=== PATIENT | female | born 1985 | race African-American/Black ===

== ENCOUNTER 2025-01-21 11:12 | Inpatient (IN) | payer MEDICAID ==
[~2025-01-21] VITALS: Ht 170.2 cm; Wt 77.1 kg
[2025-01-21] MEDS: LEVETIRACETAM 1000MG PREMIX 100 ML IV ONE ×2 (11:52)
[2025-01-21 12:02] LABS: CHLORIDE 107 mEq/L (98-107); POTASSIUM 4.4 mEq/L (3.5-5.1); SODIUM 137 mEq/L (136-145)
[2025-01-21 12:03] LABS: CARBON DIOXIDE 19 mEq/L (21-32)
[2025-01-21 12:04] LABS: CALCIUM 8.7 mg/dL (8.7-10.4)
[2025-01-21 12:08] LABS: CREATININE 0.6 mg/dL (0.6-1.0); GLUCOSE 100 mg/dL (70-105)
[2025-01-21 12:09] LABS: UREA NITROGEN BLOOD 10 mg/dL (9-23)
[2025-01-21 12:21] LABS: BASOPHILS % 0.4 % (0.0-2.0); EOSINOPHILS % 1.3 % (0.0-5.0); HEMATOCRIT. 22.5 % (36.0-48.0); MEAN CORPUSCULAR HEMOGLOBIN 16.6 pg (28.0-32.0); MEAN CORPUSCULAR VOLUME 61.4 fL (81.0-99.0); MEAN PLATELET VOLUME 9.6 fl (7.4-10.4); MONOCYTES % 8.2 % (2.0-8.0); NEUTROPHILS % 46.1 % (40.0-76.0); PLATELET 212 x1000/uL (130-400); RED BLOOD CELL COUNT 3.66 mill/uL (4.2-5.4); RED CELL DISTRIBUTION WIDTH 22.6 % (11.6-14.6); WHITE BLOOD COUNT 2.9 x1000/uL (4.5-11.0)
[2025-01-21 12:37] LABS: ADD RBC MORPHOLOGY YES; DIFFERENTIAL COMMENT 1; HEMOGLOBIN. 6.1 g/dL (12.0-16.0)
[2025-01-21 13:05] LABS: CLARITY URINE CLEAR (CLEAR); COLOR URINE YELLOW (YELLOW); GLUCOSE URINE NEGATIVE (NEGATIVE); KETONES URINE NEGATIVE (NEGATIVE); LEUKOCYTE ESTERASE URINE NEGATIVE (NEGATIVE); NITRITE URINE NEGATIVE (NEGATIVE); OCCULT BLOOD URINE NEGATIVE (NEGATIVE); PH URINE 6.5 (4.5-8.0); PROTEIN URINE NEGATIVE (NEGATIVE); SPECIFIC GRAVITY URINE 1.014 (1.005-1.030); UROBILINOGEN URINE 0.2 E.U./dL (0.2-1.0)
[2025-01-21 13:09] LABS: ETHANOL BLOOD < 10 mg/dL (<10); TROPONIN I HIGH SENSITIVITY < 4 ng/L (3.0-34)
[2025-01-21 13:53] LABS: ANISOCYTOSIS 3+; HYPOCHROMASIA 2+; MICROCYTOSIS 2+; PLATELET ESTIMATE NORMAL
[2025-01-21] MEDS ORDERED: IPRATROPIUM/ALBUTEROL 0.5-3(2.5)MG/3ML NEB HHN PRN (14:30)
[2025-01-21] MEDS ORDERED: ONDANSETRON HCL 4MG/2ML INJ IV PRN (14:30)
[2025-01-21] MEDS ORDERED: GUAIFENESIN 200MG/10ML SUGAR FREE UDC PO PRN (14:30)
[2025-01-21] MEDS ORDERED: DOCUSATE SODIUM 100MG CAPSULE PO PRN (14:30)
[2025-01-21] MEDS ORDERED: ACETAMINOPHEN 325MG TABLET PO PRN ×2 (14:30)
[2025-01-21] MEDS ORDERED: LORAZEPAM 2MG/ML INJ IV PRN (14:30)
[2025-01-21] MEDS ORDERED: CLONIDINE 0.1MG TABLET PO PRN (14:30)
[2025-01-21] MEDS: LACTATED RINGERS 1,000 ML IV SCH (15:16)
[2025-01-21 16:43] LABS: IRON 21 ug/dL (50-170)
[2025-01-21 16:46] LABS: TOTAL IRON BINDING CAPACITY 358 ug/dl (250-425)
[2025-01-21 16:46] LABS: HEMATOCRIT 22.5 % (36.0-48.0)
[2025-01-21 16:49] LABS: HEMOGLOBIN 6.2 g/dL (12.0-16.0)
[2025-01-21 16:55] LABS: FOLIC ACID (FOLATE) SERUM 7.34 ng/mL (>5.38); VITAMIN B12 SERUM 516 pg/mL (211-911)
[2025-01-21 16:58] LABS: FERRITIN 3 ng/mL (10-291)
[2025-01-21 20:00] VITALS: BP 96/77; PULSE 91; TEMP 37.2; O2SAT 100
[2025-01-21] MEDS ORDERED: LEVETIRACETAM 500MG in NACL 100ML PREMIX IV SCH (21:00)
[2025-01-21] MEDS: LEVETIRACETAM 500MG PREMIX 100ML IV SCH (22:57)
[2025-01-22] VITALS (12 sets, daily range): BP systolic 89–106; BP diastolic 51–66; PULSE 70–88; RESP 14–19; TEMP 36.6696–37.1; O2SAT 99–100
[2025-01-22 00:50] LABS: HEMATOCRIT 22.7 % (36.0-48.0)
[2025-01-22 01:01] LABS: HEMOGLOBIN 6.6 g/dL (12.0-16.0)
[2025-01-22 01:14] LABS: CREATINE KINASE 31 IU/L (34-145)
[2025-01-22 01:18] LABS: HEPATITIS B SURFACE ANTIGEN NEGATIVE (Negative); TROPONIN I HIGH SENSITIVITY < 4 ng/L (3.0-34)
[2025-01-22 01:39] LABS: HEPATITIS C AB NON REACTIVE (Neg) (Negative)
[2025-01-22] MEDS: FERROUS SULFATE 300MG/5ML UDC PO SCH (06:52)
[2025-01-22] MEDS: PANTOPRAZOLE 40MG DR TABLET PO SCH (06:52)
[2025-01-22 09:10] LABS: HEMATOCRIT 26.7 % (36.0-48.0); HEMOGLOBIN 7.8 g/dL (12.0-16.0); MEAN CORPUSCULAR HEMOGLOBIN 18.8 pg (28.0-32.0); MEAN CORPUSCULAR HGB CONC 29.4 g/dL (31.0-37.0); PLATELET 161 x1000/uL (130-400); RED BLOOD CELL COUNT 4.17 mill/uL (4.2-5.4); RED CELL DISTRIBUTION WIDTH 26.2 % (11.6-14.6); WHITE BLOOD COUNT 3.4 x1000/uL (4.5-11.0)
[2025-01-22 09:12] LABS: CHLORIDE 108 mEq/L (98-107); POTASSIUM 3.9 mEq/L (3.5-5.1); SODIUM 139 mEq/L (136-145)
[2025-01-22 09:13] LABS: CALCIUM 8.7 mg/dL (8.7-10.4); CARBON DIOXIDE 23 mEq/L (21-32)
[2025-01-22 09:18] LABS: CREATININE 0.6 mg/dL (0.6-1.0); GLUCOSE 80 mg/dL (70-105); UREA NITROGEN BLOOD 10 mg/dL (9-23)
[2025-01-22 09:20] LABS: TROPONIN I HIGH SENSITIVITY < 4 ng/L (3.0-34)
[2025-01-22 09:25] LABS: CREATINE KINASE 29 IU/L (34-145)
[2025-01-22] MEDS: FLUOXETINE HCL 10 MG CAPSULE PO SCH (13:10)
[2025-01-22 16:33] LABS: *AMPHETAMINES SCREEN URINE NEGATIVE (NEGATIVE); *BARBITURATES SCREEN URINE NEGATIVE (NEGATIVE); *BENZODIAZEPINES SCREEN URINE NEGATIVE (NEGATIVE); *COCAINE SCREEN URINE NEGATIVE (NEGATIVE); METHADONE URINE SCREEN NEGATIVE (NEGATIVE); OPIATES URINE SCREEN NEGATIVE (NEGATIVE)
[2025-01-22 16:34] LABS: CANNABINOID URINE SCREEN NEGATIVE (NEGATIVE); ECSTASY MDMA SCREEN URINE NEGATIVE (NEGATIVE); PHENCYCLIDINE URINE SCREEN NEGATIVE (NEGATIVE)
[2025-01-23] VITALS: BP_SYST 120; PULSE 84; RESP 20; TEMP 36.7; O2SAT 100
[2025-01-23 04:00] VITALS: BP 103/59; PULSE 86; RESP 20; TEMP 37; O2SAT 100
[2025-01-23 06:46] LABS: HEMOGLOBIN 8.4 g/dL (12.0-16.0)
[2025-01-23 07:09] LABS: CHLORIDE 107 mEq/L (98-107); POTASSIUM 3.9 mEq/L (3.5-5.1); SODIUM 139 mEq/L (136-145)
[2025-01-23 07:10] LABS: CALCIUM 8.9 mg/dL (8.7-10.4); CARBON DIOXIDE 22 mEq/L (21-32)
[2025-01-23 07:15] LABS: CREATININE 0.6 mg/dL (0.6-1.0); GLUCOSE 84 mg/dL (70-105); UREA NITROGEN BLOOD 10 mg/dL (9-23)
[2025-01-23 07:50] VITALS: BP 119/83; PULSE 82; RESP 19; TEMP 36.4; O2SAT 100
[2025-01-23 08:00] LABS: HCG SCREEN NEGATIVE
[2025-01-23] MEDS: LEVETIRACETAM 500MG TABLET PO SCH (09:05)
[2025-01-23 12:00] VITALS: BP 133/77; PULSE 69; RESP 19; TEMP 36.4; O2SAT 99
[2025-01-23 16:00] VITALS: PULSE 78; RESP 26; TEMP 36.4; O2SAT 100
[2025-01-23 20:04] VITALS: BP 112/72; PULSE 79; RESP 14; TEMP 36.4; O2SAT 99
[2025-01-24 00:04] VITALS: BP 106/55; PULSE 96; RESP 17; TEMP 36.3; O2SAT 100
[2025-01-24 04:04] VITALS: BP 110/58; PULSE 76; RESP 20; TEMP 36.4; O2SAT 96
[2025-01-24 08:00] VITALS: BP 110/62; PULSE 97; RESP 17; TEMP 36.9; O2SAT 100
[2025-01-24] MEDS ORDERED: FERR325T6 MT (08:30)
[2025-01-24] MEDS ORDERED: KEPP500 PO (08:30)
[2025-01-24] MEDS ORDERED: FLUO-335 PO (08:30)
[2025-01-24 11:04] VITALS: BP 110/62; PULSE 97; TEMP 98.5; O2SAT 100
== END 2025-01-24 12:02 | disposition home or self-care (01) | DRG 53 ==
LOC: ER 11:12 → EDBEDREQ 12:42 → 3WST 13:47 → EDBEDREQ 14:17 → 3WST 01-23 07:56
PROVIDERS: ADMIT Internal Medicine; ATTEND Internal Medicine
PROC: 30233N1 Transfusion of Nonautologous Red Blood Cells into Peripheral Vein, Percutaneous Approach (ICD-10-PCS; 2025-01-21)
PROC: GZ56ZZZ Individual Psychotherapy, Supportive (ICD-10-PCS; 2025-01-22)
PROC: 4A00X4Z Measurement of Central Nervous Electrical Activity, External Approach (ICD-10-PCS; principal; 2025-01-23)
DX: G40.89 Other seizures (principal); D25.9 Leiomyoma of uterus, unspecified; D50.9 Iron deficiency anemia, unspecified; F43.0 Acute stress reaction; F32.9 Major depressive disorder, single episode, unspecified; Z91.199 Patient's noncompliance with other medical treatment and regimen due to unspecified reason; Z56.0 Unemployment, unspecified
CPT/HCPCS: 36415; 76856; 80048; 80305; 80320; 81003; 82542; 82550; 82607; 82728; 82746; 83540; 83550; 84484; 84703; 85014; 85018; 85025; 85027; 86705; 86850; 86900; 86920; 87340; 93970; 95816; 99291; A4606; J1953; J7120; P9016; G0480

== ENCOUNTER 2025-03-13 17:33 | Emergency (ER) | payer SELFPAY ==
[~2025-03-13] VITALS: Ht 177.8 cm; Wt 80.0 kg
[~2025-03-13 17:33] MED LIST: FERR325T6 MT; FLUO-335 PO; KEPP500 PO
[2025-03-13 17:36] VITALS: TEMP 36.9; O2SAT 100
[2025-03-13 21:30] VITALS: BP 116/80; PULSE 101; RESP 18; O2SAT 100
== END 2025-03-13 21:30 | disposition home or self-care (01) ==
LOC: ER 17:37
DX: R56.9 Unspecified convulsions (principal); Z79.899 Other long term (current) drug therapy
CPT/HCPCS: 93005; 99283

== ENCOUNTER 2025-07-03 18:32 | Emergency (ER) | payer OTHER ==
[~2025-07-03] VITALS: Ht 165.1 cm; Wt 82.0 kg
[2025-07-03 18:37] VITALS: BP 103/42; PULSE 101; RESP 18; TEMP 36.8; O2SAT 99
[2025-07-03] MEDS ORDERED: LEVETIRACETAM 1000MG PREMIX 100 ML IV ONE (19:00)
[2025-07-03] MEDS ORDERED: SODIUM CHLORIDE 0.9% 1,000 ML IV ONE (19:15)
[2025-07-03 19:18] LABS: BASOPHILS % 0.3 % (0.0-2.0); EOSINOPHILS % 1.0 % (0.0-5.0); HEMATOCRIT. 26.6 % (36.0-48.0); HEMOGLOBIN. 7.6 g/dL (12.0-16.0); LYMPHOCYTES % 38.5 % (20.0-50.0); MEAN PLATELET VOLUME 9.3 fl (7.4-10.4); MONOCYTES % 7.1 % (2.0-8.0); NEUTROPHILS % 53.1 % (40.0-76.0); PLATELET 301 x1000/uL (130-400); RED BLOOD CELL COUNT 3.79 mill/uL (4.2-5.4); RED CELL DISTRIBUTION WIDTH 27.5 % (11.6-14.6)
[2025-07-03 19:20] LABS: ADD RBC MORPHOLOGY YES
[2025-07-03 19:33] LABS: CREATININE 0.8 mg/dL (0.6-1.0)
[2025-07-03 19:34] LABS: ETHANOL BLOOD < 10 mg/dL (<10); UREA NITROGEN BLOOD 13 mg/dL (9-23)
[2025-07-03 20:40] LABS: PLATELET ESTIMATE NORMAL
== END 2025-07-03 19:15 | disposition left against medical advice (07) ==
LOC: ER 18:32
DX: G40.909 Epilepsy, unspecified, not intractable, without status epilepticus (principal); Z79.899 Other long term (current) drug therapy
CPT/HCPCS: 80048; 80320; 85025; 36415; 93005; 99284; J1953; J7030; Z7610 ×2; A4606; G0480

== ENCOUNTER 2025-08-20 17:51 | Inpatient (IN) | payer MEDICAID ==
[~2025-08-20] VITALS: Ht 170.2 cm; Wt 78.5 kg
[~2025-08-20 17:51] MED LIST changes: +LEVE1000 MT
[2025-08-20 17:54] VITALS: O2SAT 99
[2025-08-20] MEDS ORDERED: KEPP500 MT (17:57)
[2025-08-20] MEDS: LORAZEPAM 2MG/ML UD SYRINGE IV NR (18:33)
[2025-08-20] MEDS: KETOROLAC 15MG/ML VIAL IV ONE (18:33)
[2025-08-20] MEDS: SODIUM CHLORIDE 0.9% 1,000 ML IV ONE (18:33)
[2025-08-20] MEDS: LEVETIRACETAM 1000MG PREMIX 100 ML IV ONE (18:33)
[2025-08-20 20:36] LABS: BASOPHILS % 0.4 % (0.0-2.0); EOSINOPHILS % 0.7 % (0.0-5.0); HEMATOCRIT. 26.5 % (36.0-48.0); HEMOGLOBIN. 7.8 g/dL (12.0-16.0); LYMPHOCYTES % 14.0 % (20.0-50.0); MEAN PLATELET VOLUME 9.8 fl (7.4-10.4); MONOCYTES % 7.5 % (2.0-8.0); NEUTROPHILS % 77.4 % (40.0-76.0); PLATELET 240 x1000/uL (130-400); RED BLOOD CELL COUNT 3.74 mill/uL (4.2-5.4); RED CELL DISTRIBUTION WIDTH 24.4 % (11.6-14.6)
[2025-08-20 20:38] LABS: ADD RBC MORPHOLOGY YES
[2025-08-20 20:48] LABS: CREATININE 1.1 mg/dL (0.6-1.0)
[2025-08-20 20:49] LABS: UREA NITROGEN BLOOD 14 mg/dL (9-23)
[2025-08-20 20:50] LABS: ASPARTATE AMINOTRANSFERASE 14 IU/L (<34); BILIRUBIN DIRECT < 0.1 mg/dL (<=3.0)
[2025-08-20 20:51] LABS: BILIRUBIN TOTAL 0.4 mg/dL (0.1-1.0); PROTEIN TOTAL 6.0 g/dL (6.0-8.3)
[2025-08-20 20:52] LABS: PLATELET ESTIMATE NORMAL
[2025-08-20] MEDS ORDERED: CLONIDINE 0.1MG TABLET PO PRN (22:45)
[2025-08-20] MEDS ORDERED: MAGNESIUM/ALUMINUM HYDROXIDE/SIMETHICONE 30ML UDC PO PRN (22:45)
[2025-08-20] MEDS ORDERED: HYDROCODONE/ACETAMINOPHEN 5/325MG TABLET PO PRN (22:45)
[2025-08-20] MEDS ORDERED: LORAZEPAM 2MG/ML UD SYRINGE IV PRN (22:45)
[2025-08-20] MEDS ORDERED: ZOLPIDEM TARTRATE 5MG TABLET PO PRN (22:45)
[2025-08-20] MEDS ORDERED: ACETAMINOPHEN 325MG TABLET PO PRN (22:45)
[2025-08-20] MEDS ORDERED: ONDANSETRON HCL 4MG/2ML INJ IV PRN (22:45)
[2025-08-21] VITALS: BP 114/73; PULSE 84; PULSE 90; RESP 18; RESP 19; TEMP 36.1956; TEMP 36.2; O2SAT 100
[2025-08-21] MEDS: LEVETIRACETAM 500MG TABLET PO SCH ×2 (01:36→21:26)
[2025-08-21] MEDS: SODIUM CHLORIDE 0.9% 1,000 ML IV SCH (01:41)
[2025-08-21 04:00] VITALS: BP 91/57; PULSE 77; RESP 19; TEMP 36.2; O2SAT 99
[2025-08-21 07:51] LABS: BASOPHILS % 0.3 % (0.0-2.0); EOSINOPHILS % 2.3 % (0.0-5.0); HEMATOCRIT. 25.2 % (36.0-48.0); HEMOGLOBIN. 7.6 g/dL (12.0-16.0); LYMPHOCYTES % 35.6 % (20.0-50.0); MEAN PLATELET VOLUME 10.6 fl (7.4-10.4); MONOCYTES % 9.0 % (2.0-8.0); NEUTROPHILS % 52.8 % (40.0-76.0); PLATELET 239 x1000/uL (130-400); RED BLOOD CELL COUNT 3.63 mill/uL (4.2-5.4); RED CELL DISTRIBUTION WIDTH 24.2 % (11.6-14.6)
[2025-08-21 08:00] VITALS: BP 103/52; PULSE 81; RESP 16; TEMP 36.3; O2SAT 98
[2025-08-21 08:05] LABS: CREATININE 0.7 mg/dL (0.6-1.0); UREA NITROGEN BLOOD 13 mg/dL (9-23)
[2025-08-21] MEDS: PANTOPRAZOLE SODIUM 40 MG/VIAL IV SCH (09:18)
[2025-08-21] MEDS: ENOXAPARIN 40MG/0.4ML SYR SUBCUT SCH (09:18)
[2025-08-21] MEDS: FLUOXETINE HCL 10 MG CAPSULE PO SCH (09:18)
[2025-08-21 12:00] VITALS: BP_SYST 106; BP_SYST 111; BP_DIAS 57; BP_DIAS 58; PULSE 81; PULSE 98; RESP 15; RESP 18; TEMP 36.3; TEMP 36.6; O2SAT 100; O2SAT 96
[2025-08-21 16:00] VITALS: BP 101/53; PULSE 84; RESP 19; TEMP 36.2; O2SAT 100
[2025-08-21 20:00] VITALS: BP 116/61; PULSE 84; RESP 17; TEMP 36.4; O2SAT 100
[2025-08-21] MEDS: IBUPROFEN 800MG TABLET PO PRN (22:45)
[2025-08-22] VITALS: BP 92/52; PULSE 81; RESP 17; TEMP 36.5; O2SAT 99
[2025-08-22 04:00] VITALS: BP 91/50; PULSE 79; RESP 17; TEMP 36.4; O2SAT 98
[2025-08-22 07:30] LABS: BASOPHILS % 0.2 % (0.0-2.0); EOSINOPHILS % 3.3 % (0.0-5.0); HEMATOCRIT. 25.6 % (36.0-48.0); HEMOGLOBIN. 7.6 g/dL (12.0-16.0); LYMPHOCYTES % 38.4 % (20.0-50.0); MEAN PLATELET VOLUME 9.2 fl (7.4-10.4); MONOCYTES % 12.4 % (2.0-8.0); NEUTROPHILS % 45.7 % (40.0-76.0); PLATELET 212 x1000/uL (130-400); RED BLOOD CELL COUNT 3.68 mill/uL (4.2-5.4); RED CELL DISTRIBUTION WIDTH 24.5 % (11.6-14.6)
[2025-08-22 07:45] LABS: CREATININE 0.6 mg/dL (0.6-1.0); UREA NITROGEN BLOOD 7 mg/dL (9-23)
[2025-08-22 08:00] VITALS: BP 103/73; PULSE 75; RESP 17; TEMP 36.4; O2SAT 97
[2025-08-22] MEDS ORDERED: KEPP500 PO (09:01)
[2025-08-22 09:28] VITALS: BP 103/73; PULSE 75; RESP 17; TEMP 97.6
== END 2025-08-22 10:04 | disposition home or self-care (01) | DRG 53 ==
LOC: ER 17:51 → 6WST 22:23 → EDBEDREQTM 22:28 → EDBEDREQ 22:28 → ENRESERV 22:54
PROVIDERS: ADMIT Internal Medicine; ATTEND Internal Medicine
DX: G40.909 Epilepsy, unspecified, not intractable, without status epilepticus (principal); D64.9 Anemia, unspecified; M54.50 Low back pain, unspecified; I10 Essential (primary) hypertension; Z91.199 Patient's noncompliance with other medical treatment and regimen due to unspecified reason
CPT/HCPCS: 36415; 72131; 80048; 80076; 80320; 82542; 83605; 83735; 84443; 84702; 85025; 93005; 93970; 99285; J1650; J1885; J1953; J2060; J2470; J7030; G0480

== ENCOUNTER 2025-08-27 11:13 | Emergency (ER) | payer MEDICAID, OTHER ==
[~2025-08-27] VITALS: Ht 172.7 cm; Wt 75.0 kg
[~2025-08-27 11:13] MED LIST changes: -LEVE1000 MT
[2025-08-27 11:17] VITALS: O2SAT 99
[2025-08-27 11:55] LABS: BASOPHILS % 0.5 % (0.0-2.0); EOSINOPHILS % 1.6 % (0.0-5.0); HEMATOCRIT. 27.2 % (36.0-48.0); HEMOGLOBIN. 8.1 g/dL (12.0-16.0); LYMPHOCYTES % 22.0 % (20.0-50.0); MEAN PLATELET VOLUME 9.6 fl (7.4-10.4); MONOCYTES % 6.6 % (2.0-8.0); NEUTROPHILS % 69.3 % (40.0-76.0); PLATELET 322 x1000/uL (130-400); RED BLOOD CELL COUNT 3.90 mill/uL (4.2-5.4); RED CELL DISTRIBUTION WIDTH 23.5 % (11.6-14.6)
[2025-08-27] MEDS: LEVETIRACETAM 1000MG PREMIX 100 ML IV ONE (11:55)
[2025-08-27 11:57] LABS: ADD RBC MORPHOLOGY YES
[2025-08-27 12:08] LABS: CREATININE 0.9 mg/dL (0.6-1.0); UREA NITROGEN BLOOD 13 mg/dL (9-23)
[2025-08-27 12:23] LABS: PLATELET ESTIMATE NORMAL
[2025-08-27 14:01] VITALS: BP 115/72; PULSE 96; RESP 18; TEMP 37; O2SAT 99
== END 2025-08-27 14:26 | disposition home or self-care (01) ==
LOC: ER 11:13 → CANBEDREQ 13:48 → ER 14:26
DX: G40.909 Epilepsy, unspecified, not intractable, without status epilepticus (principal); Z79.899 Other long term (current) drug therapy
CPT/HCPCS: 80048; 80320; 85025; 36415; 93005; 96365; 99284; J1953; G0480